=== PATIENT | male | born 1940 | race Caucasian/White ===

== ENCOUNTER → 2019-03-28 | Outpatient (CLI) | payer OTHER ==
[~2019-03-28] MED LIST: ALEVE220 MG PO; LORTAB PO; MULTIVITAMINS PO
== END ==
LOC: SJCVCIMAG 08:27
DX: I65.23 Occlusion and stenosis of bilateral carotid arteries (principal); I25.10 Atherosclerotic heart disease of native coronary artery without angina pectoris; E78.00 Pure hypercholesterolemia, unspecified; I42.9 Cardiomyopathy, unspecified; I12.9 Hypertensive chronic kidney disease with stage 1 through stage 4 chronic kidney disease, or unspecified chronic kidney disease; N18.4 Chronic kidney disease, stage 4 (severe); J44.9 Chronic obstructive pulmonary disease, unspecified; I73.9 Peripheral vascular disease, unspecified; I71.4 Abdominal aortic aneurysm, without rupture; F17.210 Nicotine dependence, cigarettes, uncomplicated; Z72.89 Other problems related to lifestyle

== ENCOUNTER → 2019-11-22 | Outpatient (CLI) | payer OTHER | LOC: SJCVCIMAG 07:33 | PROVIDERS: ATTEND Internal Medicine Cardiovascular Disease | DX: I70.203 Unspecified atherosclerosis of native arteries of extremities, bilateral legs (principal); I49.3 Ventricular premature depolarization; I44.0 Atrioventricular block, first degree; I71.4 Abdominal aortic aneurysm, without rupture; I42.9 Cardiomyopathy, unspecified; I25.10 Atherosclerotic heart disease of native coronary artery without angina pectoris; E78.00 Pure hypercholesterolemia, unspecified; I65.23 Occlusion and stenosis of bilateral carotid arteries; I10 Essential (primary) hypertension; J44.9 Chronic obstructive pulmonary disease, unspecified; F17.210 Nicotine dependence, cigarettes, uncomplicated; Z79.899 Other long term (current) drug therapy ==

== ENCOUNTER → 2020-02-27 | Outpatient (CLI) | payer OTHER | LOC: SJCVCIMAG 12:30 | PROVIDERS: ATTEND Internal Medicine Cardiovascular Disease | DX: I65.23 Occlusion and stenosis of bilateral carotid arteries (principal); I25.10 Atherosclerotic heart disease of native coronary artery without angina pectoris; E78.00 Pure hypercholesterolemia, unspecified; I73.9 Peripheral vascular disease, unspecified; I10 Essential (primary) hypertension; I71.4 Abdominal aortic aneurysm, without rupture; J44.9 Chronic obstructive pulmonary disease, unspecified; F17.210 Nicotine dependence, cigarettes, uncomplicated; Z79.82 Long term (current) use of aspirin; Z79.899 Other long term (current) drug therapy ==

== ENCOUNTER → 2020-03-12 | Outpatient (CLI) | payer OTHER ==
[~2020-03-12] MED LIST changes: +ADULT ASPIRIN R81 MG PO; +BENICAR40 MG PO; +BYSTOLIC 5 MG5 MG PO; +CLOPIDOGREL75 MG PO; +LIPITOR 40 MG T40 M1 PO
== END ==
LOC: LAB 08:16
PROVIDERS: ATTEND Surgery
DX: Z01.812 Encounter for preprocedural laboratory examination (principal); Z20.828 Contact with and (suspected) exposure to other viral communicable diseases

== ENCOUNTER 2020-03-17 06:08 | Day surgery (SDC) | payer OTHER ==
[~2020-03-17] VITALS: Ht 180.3 cm; Wt 60.3 kg
[2020-03-17 06:47] LABS: HEMATOCRIT 35.7 % (42.0-52.0); HEMOGLOBIN 11.6 gm/dL (14.0-18.0)
[2020-03-17 07:00] LABS: CALCIUM 9.2 mg/dL (8.5-10.1); POTASSIUM 4.3 mmol/L (3.5-5.1)
[2020-03-17 07:05] LABS: ALBUMIN 3.8 g/dL (3.4-5.0); TOTAL BILIRUBIN 0.5 mg/dL (0.2-1.0); TOTAL PROTEIN 6.7 g/dL (6.4-8.2)
[2020-03-17 07:32] VITALS: BP 122/62
[2020-03-17] MEDS ORDERED: COLACE100 MG PO (09:42)
[2020-03-17] MEDS ORDERED: MIRALAX119 GM PO (09:42)
[2020-03-17] MEDS ORDERED: NORCO 5-325 TA1 EAC2 PO (09:44)
[2020-03-17 09:56] VITALS: BP 122/62
--- NOTE | 2020-03-19 15:07 | PATH ---
[facility] [address] [place] [address] PATHOLOGY RPT PROCEDURE Name: SONDRA SHEEHAN Lisset Room #: DEP [facility] M.R.#: [id number] Admission: 03/17/20 Date of : 42 Discharge: 03/17/20 Report #: [id number] Path Case #: [id number] Accession Number: [id number] . 01 Material submitted: . hemorrhoids - HEMORROIDS . 01 Clinical history: . HEMORRHOID WITH BLEEDING HEMORRHOIDECTOMY . 02 Diagnosis: Hemorrhoids, hemorrhoidectomy: - Markedly dilated, congested and variceal veins within submucosa, consistent with hemorrhoids. - Overlying squamous epithelium showing reactive atypia along with hyperkeratosis. (IUV:aircraft armorer; 03/19/2020) MBR 03/19/2020 1218 Local . 02 Electronically signed: . Andra Hood MD, Pathologist NPI- [id number] . 01 Gross description: . The specimen is received in formalin, labeled "Sondra Sheehan cory". Received are six segments of epithelial covered tissue ranging in size from 1.0 x 0.5 x 0.3 to 2.5 x 1.3 x 1.2 cm in greatest dimensions. Sectioning reveals pink-chan to moderately vascularized cut surfaces. No distinct nodules or lesions are noted grossly. The specimen is submitted representatively in cassette A1 and A2. (CAA; 03/17/2020) QA/[facility] 03/17/2020 1519 Local . 02 Pathologist provided ICD-10: K64.9 . 02 CPT . 684783 Specimen Comment: A courtesy copy of this report has been sent to [phone] Specimen Comment: Report sent to Performed at: [address] [id number] MD Smith Mclean MD Phone: [phone] Performed at: 02 [facility] [address] [place] [address] PATHOLOGY RPT PROCEDURE Name: SONDRA SHEEHAN Room #: DEP [facility]..#: [id number] Admission: 03/17/20 Date of : 42 Discharge: 03/17/20 Report #: [id number] Path Case #: [id number] [address] [place] [id number] MD Andra Hood MD Phone: [phone]
--- NOTE | 2020-03-29 13:19 | O ---
[facility] [place] [address] OPERATIVE REPORT Name: SONDRA SHEEHAN Room #: DEP [facility].#: [id number] Admission: 03/17/20 Attend Phys: Almas Garcia MD Discharge: 03/17/20 Date of : 42 Report #: [id number] THIS REPORT FOR: cc: Hector Hawk MD, Christopher B. MD Chu, Peter Y. MD ~ DATE OF SERVICE: 03/17/2020 PREOPERATIVE DIAGNOSIS: Grade 4 internal and external hemorrhoid with bleeding. POSTOPERATIVE DIAGNOSIS: Grade 4 internal and external hemorrhoid with bleeding. PROCEDURES PERFORMED: Hemorrhoidectomy x 3 including internal and external component. ANESTHESIA: General, prone position. SURGEON: Almas Garcia MD COMPLICATIONS: None. ESTIMATED BLOOD LOSS: 5 mL. PROCEDURE NOTE: With the patient in the prone position under general anesthesia, the rectal area was prepped and draped in sterile fashion. The buttocks were taped apart. The patient received IV Ancef and also Flagyl. Timeout was performed. A 0.25% Marcaine was used to anesthetize the skin and subcutaneous tissue, perianal block. A total of 20 mL was injected of 0.25% Marcaine with epinephrine. The patient had 3 groups: One is left lateral, right lateral, and right anterior. All these were excised. The redundant skin was excised, and the skin was then freed from underneath sphincter muscle. The internal hemorrhoid was then isolated, divided with a Harmonic scalpel. On the left side, there were a couple of internal hemorrhoids adjacent to it, and these were also removed. The right posterior one is the one that in the evaluation in the office looked like it was the prolapsed and bleeding site. This was removed in the same manner. The skin was excised. The internal hemorrhoid was divided with Harmonic scalpel. Hemostasis was obtained. Right anterior was then performed. There was a small clot on the left side, which I also removed. The hemostasis was obtained. Irrigation was performed. No bleeding identified. The skin externally was closed with 2-0 Vicryl suture in running fashion. Gelfoam with lidocaine jelly and Silvadene was placed into the canal. A [address] [address] OPERATIVE REPORT Name: AGUILASONDRA Lisset Room #: DEP [facility].#: [id number] Admission: 03/17/20 Attend Phys: Almas Garcia MD Discharge: 03/17/20 Date of : 42 Report #: [id number]'s, ABD tape was applied. The patient was taken to recovery room having tolerated the procedure well. <ELECTRONICALLY SIGNED> By: Almas Garcia MD 03/29/20 1319 1151 1211 Almas Garcia MD /nt
== END 2020-03-17 10:25 | disposition home or self-care (01) ==
LOC: OR 06:08 → TBA 06:08 → OR 10:25
PROVIDERS: ATTEND Surgery
DX: K64.3 Fourth degree hemorrhoids (principal); I12.9 Hypertensive chronic kidney disease with stage 1 through stage 4 chronic kidney disease, or unspecified chronic kidney disease; N18.4 Chronic kidney disease, stage 4 (severe); I25.2 Old myocardial infarction; E78.5 Hyperlipidemia, unspecified; J44.9 Chronic obstructive pulmonary disease, unspecified; F17.210 Nicotine dependence, cigarettes, uncomplicated; Z98.890 Other specified postprocedural states; Z79.899 Other long term (current) drug therapy
CPT/HCPCS: 50010; 50101; 50386; 50403; 52190; 56526; 62110; 62900; 70005

== ENCOUNTER 2020-03-23 17:45 | Inpatient (IN) | payer OTHER ==
[~2020-03-23] VITALS: Ht 180.3 cm; Wt 54.4 kg
[~2020-03-23 17:45] MED LIST changes: +COLACE100 MG PO; +MIRALAX119 GM PO; +NORCO 5-325 TA1 EAC2 PO
[2020-03-23 17:46] VITALS: BP 121/58
[2020-03-23 18:20] LABS: ABSOLUTE NEUTROPHILS 10.4 thou/uL (1.4-8.2); BASOPHILS 0.4 % (0.0-2.0); EOSINOPHILS 0.2 % (0.0-3.0); HEMATOCRIT 31.4 % (42.0-52.0); HEMOGLOBIN 10.2 gm/dL (14.0-18.0); LYMPHOCYTES 11.8 % (24.0-44.0); MCH 29.2 pg (26.0-34.0); MCHC 32.3 g/dL (28.0-37.0); MCV 90.3 fL (80.0-100.0); MONOCYTES 4.9 % (1.0-8.0); PLATELET COUNT 247 thou/uL (150-400); POLYS 82.7 % (36.0-66.0); RBC 3.48 mil/uL (4.50-6.00); RDW 14.8 % (10.5-14.5); WBC 12.6 thou/uL (4.0-11.0)
[2020-03-23 18:22] LABS: ANION GAP 16 mmol/L (7-16); BUN 59 mg/dL (7-18); CALCIUM 9.2 mg/dL (8.5-10.1); CHLORIDE 108 mmol/L (98-107); CO2 18 mmol/L (21-32); CREATININE 4.1 mg/dL (0.7-1.3); GLUCOSE 187 mg/dL (74-106); POTASSIUM 4.8 mmol/L (3.5-5.1); SODIUM 142 mmol/L (136-145)
[2020-03-23] MEDS ORDERED: PLAVIX 75 MG TA75 MG PO (18:27)
[2020-03-23 18:31] LABS: INR 1.2; PROTIME 11.9 Seconds (9.3-11.4); TROPONIN-I <0.06 ng/mL (<0.06)
[2020-03-23 20:34] VITALS: BP 121/44
--- NOTE | 2020-03-23 20:37 | NUR ---
Called CCU but nobody answer phone
[2020-03-23 20:44] VITALS: BP 137/50
[2020-03-23 21:19] VITALS: BP 151/71
[2020-03-24 00:24] VITALS: BP 136/71
[2020-03-24 04:23] LABS: CALCIUM 8.7 mg/dL (8.5-10.1); CREATININE 4.1 mg/dL (0.7-1.3); POTASSIUM 4.4 mmol/L (3.5-5.1)
[2020-03-24 04:42] LABS: HEMATOCRIT 27.1 % (42.0-52.0); HEMOGLOBIN 9.1 gm/dL (14.0-18.0); MCH 29.5 pg (26.0-34.0); MCHC 33.4 g/dL (28.0-37.0); MCV 88.4 fL (80.0-100.0); RBC 3.07 mil/uL (4.50-6.00); RDW 14.9 % (10.5-14.5); WBC 10.4 thou/uL (4.0-11.0)
[2020-03-24 04:45] VITALS: BP 136/80
--- NOTE | 2020-03-24 07:19 | EKG ---
[address] [place] [address] ELECTROCARDIOGRAM REPORT Name: SONDRA SHEEHAN Room #: 219-P ADM IN M.R.#: [id number] Admission: 03/23/20 Attend Phys: Carmela Ureña MD Discharge: Date of : 42 Report #: [id number] [facility] ED Test Date: 2020-03-23 Test Time: 17:59:58 Pat Name: SONDRA SHEEHAN Department: Room: 219 Gender: M Telecom Manager: JAMES : 1940 Requested By: Lorrie Gu Order Number: [id number] MD: Nathanael Calles Measurements Intervals [place] Rate: 61 P: 63 LA: 180 QRS: 27 QRSD: 127 T: -44 QT: 490 QTc: 494 Interpretive Statements Sinus rhythm Nonspecific ST segment abnormality Prolonged QT interval No previous ECG available for comparison Electronically Signed On 03-24-2020 7:19:19 SECURITY INFRASTRUCTURE ENGINEER by Nathanael Calles [email or web address] <ELECTRONICALLY SIGNED> By: Nathanael Calles MD, LOCATED WITHIN [facility] 03/24/20 0719 1759 1759 Nathanael Calles MD, FACC /EPI
--- NOTE | 2020-03-24 07:39 | NUR ---
PATIENTS CARES WERE ASSUMED AFTER A TRANSFER FROM ER. PATIENT WAS ASSESSED AND MEDS WERE PASSED. PATIENT IS TO GO TO SURGERY AT APPROX 0900. DR. WEI WAS CALLED TO DO AN H/H AT 0600 DR. WEI SAID NO WAIT UNTIL 10. PATIENT ONLY C/O NO FOOD OR WATER WILL CONTINUE TO MONITOR.
[2020-03-24 08:00] VITALS: BP 116/70
[2020-03-24 10:37] LABS: HEMATOCRIT 26.6 % (42.0-52.0); HEMOGLOBIN 8.7 gm/dL (14.0-18.0)
[2020-03-24 12:11] VITALS: BP 144/65
[2020-03-24 16:00] VITALS: BP 136/52
--- NOTE | 2020-03-24 18:17 | NUR ---
PT CARE ASSUMED AT 0700. A&Ox4. NSR ON THE MONITOR. PT TO HAVE SITZBATH THREE TIMES A DAY. ON RENAL DIET. POSSIBLE DISCHARGE TOMORROW. IV PATENT WITH NO REDNESS OR EDEMA, FLUIDS INFUSING. UP TO THE BATHROOM. VITALS STABLE. CALL LIGHT IN REACH. WILL CONTINUE TO MONITOR.
[2020-03-24 19:40] VITALS: BP 146/48
[2020-03-25 04:38] VITALS: BP 139/54
[2020-03-25 06:22] LABS: HEMATOCRIT 25.9 % (42.0-52.0); HEMOGLOBIN 8.4 gm/dL (14.0-18.0); MCH 29.2 pg (26.0-34.0); MCHC 32.4 g/dL (28.0-37.0); MCV 89.9 fL (80.0-100.0); RBC 2.88 mil/uL (4.50-6.00); RDW 15.3 % (10.5-14.5)
[2020-03-25 06:26] LABS: CALCIUM 8.4 mg/dL (8.5-10.1); CREATININE 3.8 mg/dL (0.7-1.3); POTASSIUM 3.7 mmol/L (3.5-5.1)
--- NOTE | 2020-03-25 06:28 | NUR ---
PATIENTS CARES WERE ASSUMED AT SHIFT CHANGE. PATIENT WAS ASSESSED AND MEDS WERE PASSED. REQUEST FOR A SITZ BATH TO BE BROUGHT FROM [facility]ENTER[facility] [employer] WAS GIVEN TO HOUSE SUPERVISER YESTERDAY AND IT WAS NOT DELIVERED. WARM WASH CLOTHS WERE PLACED. HOURLY ROUNDS WERE DONE. THE BED IS IN A LOW AND LOCKED POSITION
[2020-03-25 06:58] VITALS: BP 118/73
[2020-03-25 07:55] VITALS: BP 118/73
[2020-03-25] MEDS ORDERED: PROTONIX40 M2 PO (13:04)
[2020-03-25 13:06] VITALS: BP 118/73
--- NOTE | 2020-03-25 13:06 | NUR ---
Met with patient reports he resides at home alone. He uses no DME and no hx of rehab. Patient reports he cont to drive. He reports he is independent with adls. He reports no needs at dc. Denies need for home health RN.
--- NOTE | 2020-03-25 16:35 | NUR ---
PT CARE ASSUMED AT 0700. ASSESSMENTS CHARTED. MEDICATIONS CHARTED. RAC IV. LAC IV. SINUS RHYTHM. PT HAS HAD HEMORRHOID SURGERY. PT DISCHARGED TO HOME. DISCHARGE PAPERWORK SIGNED. TELEMETRY D/C'D. IV D/C'D.
== END 2020-03-25 13:56 | disposition home or self-care (01) | DRG 377 ==
LOC: ER 17:45 → EROBS 19:29 → 2N 19:29
PROVIDERS: Emergency Medicine; Nurse Practitioner Family; Surgery; ADMIT Internal Medicine; ATTEND Internal Medicine
DX: K92.1 Melena (principal); N17.0 Acute kidney failure with tubular necrosis; R65.11 Systemic inflammatory response syndrome (SIRS) of non-infectious origin with acute organ dysfunction; N17.9 Acute kidney failure, unspecified; N18.4 Chronic kidney disease, stage 4 (severe); I73.9 Peripheral vascular disease, unspecified; E78.5 Hyperlipidemia, unspecified; I12.9 Hypertensive chronic kidney disease with stage 1 through stage 4 chronic kidney disease, or unspecified chronic kidney disease; D64.9 Anemia, unspecified; E86.0 Dehydration; F17.210 Nicotine dependence, cigarettes, uncomplicated; J44.9 Chronic obstructive pulmonary disease, unspecified; R53.81 Other malaise; I25.10 Atherosclerotic heart disease of native coronary artery without angina pectoris; K59.00 Constipation, unspecified; Z95.828 Presence of other vascular implants and grafts; Z79.899 Other long term (current) drug therapy; I25.2 Old myocardial infarction; Z95.5 Presence of coronary angioplasty implant and graft
CPT/HCPCS: 10081

== ENCOUNTER 2020-03-26 01:55 | Emergency (ER) | payer OTHER ==
[~2020-03-26] VITALS: Ht 180.3 cm; Wt 54.4 kg
[~2020-03-26 01:55] MED LIST changes: +PLAVIX 75 MG TA75 MG PO; +PROTONIX40 M2 PO
[2020-03-26 03:58] LABS: ABSOLUTE NEUTROPHILS 7.5 thou/uL (1.4-8.2); BASOPHILS 0.5 % (0.0-2.0); EOSINOPHILS 1.1 % (0.0-3.0); HEMATOCRIT 23.7 % (42.0-52.0); HEMOGLOBIN 7.8 gm/dL (14.0-18.0); LYMPHOCYTES 16.1 % (24.0-44.0); MCH 29.6 pg (26.0-34.0); MCV 89.7 fL (80.0-100.0); PLATELET COUNT 185 thou/uL (150-400); POLYS 76.3 % (36.0-66.0); RBC 2.64 mil/uL (4.50-6.00); RDW 14.9 % (10.5-14.5); WBC 9.9 thou/uL (4.0-11.0)
[2020-03-26 04:03] LABS: CALCIUM 8.6 mg/dL (8.5-10.1); CREATININE 3.4 mg/dL (0.7-1.3); POTASSIUM 4.2 mmol/L (3.5-5.1)
[2020-03-26 04:39] LABS: APTT 27.2 Seconds (24.5-32.8); INR 1.1; PROTIME 11.4 Seconds (9.3-11.4)
[2020-03-26 05:29] VITALS: BP 149/93
== END 2020-03-26 05:29 | disposition home or self-care (01) ==
LOC: ER 01:55
PROVIDERS: Emergency Medicine
DX: K62.5 Hemorrhage of anus and rectum (principal); D64.9 Anemia, unspecified; R10.30 Lower abdominal pain, unspecified; K64.4 Residual hemorrhoidal skin tags; I25.2 Old myocardial infarction; I73.9 Peripheral vascular disease, unspecified; J44.9 Chronic obstructive pulmonary disease, unspecified; E78.5 Hyperlipidemia, unspecified; I12.9 Hypertensive chronic kidney disease with stage 1 through stage 4 chronic kidney disease, or unspecified chronic kidney disease; N18.4 Chronic kidney disease, stage 4 (severe); Z79.899 Other long term (current) drug therapy; Z98.890 Other specified postprocedural states

== ENCOUNTER → 2020-06-18 | Outpatient (CLI) | payer OTHER | LOC: SJCVCIMAG 06-11 08:10 | PROVIDERS: ATTEND Internal Medicine Cardiovascular Disease | DX: R94.31 Abnormal electrocardiogram [ECG] [EKG] (principal); I25.10 Atherosclerotic heart disease of native coronary artery without angina pectoris; I10 Essential (primary) hypertension; I77.9 Disorder of arteries and arterioles, unspecified; I73.9 Peripheral vascular disease, unspecified; I42.9 Cardiomyopathy, unspecified; I71.4 Abdominal aortic aneurysm, without rupture; E78.00 Pure hypercholesterolemia, unspecified; F17.210 Nicotine dependence, cigarettes, uncomplicated; Z72.89 Other problems related to lifestyle; Z79.82 Long term (current) use of aspirin; Z79.899 Other long term (current) drug therapy ==

== ENCOUNTER → 2021-01-07 | Outpatient (CLI) | payer OTHER | LOC: SJCVCIMAG 09:40 | PROVIDERS: ATTEND Internal Medicine Cardiovascular Disease | DX: R94.31 Abnormal electrocardiogram [ECG] [EKG] (principal); I49.1 Atrial premature depolarization; I65.23 Occlusion and stenosis of bilateral carotid arteries; I70.203 Unspecified atherosclerosis of native arteries of extremities, bilateral legs; I25.10 Atherosclerotic heart disease of native coronary artery without angina pectoris; I10 Essential (primary) hypertension; I77.9 Disorder of arteries and arterioles, unspecified; I71.4 Abdominal aortic aneurysm, without rupture; I42.9 Cardiomyopathy, unspecified; E78.00 Pure hypercholesterolemia, unspecified; J44.9 Chronic obstructive pulmonary disease, unspecified; F17.210 Nicotine dependence, cigarettes, uncomplicated; Z72.89 Other problems related to lifestyle; Z79.82 Long term (current) use of aspirin; Z79.899 Other long term (current) drug therapy ==

== ENCOUNTER → 2021-05-06 | Outpatient (CLI) | payer OTHER | LOC: SJCVC 09:32 | PROVIDERS: ATTEND Internal Medicine Cardiovascular Disease | DX: R94.31 Abnormal electrocardiogram [ECG] [EKG] (principal); I24.9 Acute ischemic heart disease, unspecified; R07.9 Chest pain, unspecified; I25.118 Atherosclerotic heart disease of native coronary artery with other forms of angina pectoris; I73.9 Peripheral vascular disease, unspecified; I71.4 Abdominal aortic aneurysm, without rupture; I77.9 Disorder of arteries and arterioles, unspecified; I10 Essential (primary) hypertension; E78.00 Pure hypercholesterolemia, unspecified; J44.9 Chronic obstructive pulmonary disease, unspecified; F17.210 Nicotine dependence, cigarettes, uncomplicated; Z72.89 Other problems related to lifestyle; Z79.82 Long term (current) use of aspirin; Z79.899 Other long term (current) drug therapy ==

== ENCOUNTER → 2021-05-11 | Outpatient (CLI) | payer OTHER ==
[~2021-05-11] VITALS: Ht 180.3 cm; Wt 63.5 kg
[~2021-05-11] MED LIST changes: +ASA81BEC PO
[2021-05-11 08:16] VITALS: BP 130/65
[2021-05-11 08:22] LABS: HEMATOCRIT 33.8 % (42.0-52.0); HEMOGLOBIN 11.5 gm/dL (14.0-18.0); MCH 29.4 pg (26.0-34.0); MCV 86.6 fL (80.0-100.0); RBC 3.9 mil/uL (4.50-6.00); RDW 14.8 % (10.5-14.5)
[2021-05-11 08:38] LABS: CALCIUM 8.9 mg/dL (8.5-10.1); CREATININE 3.1 mg/dL (0.7-1.3); POTASSIUM 3.9 mmol/L (3.5-5.1)
--- NOTE | 2021-05-11 11:39 | EKG ---
[place] [address] [facility] [place] [address] ELECTROCARDIOGRAM REPORT Name: SONDRA SHEEHAN Room #: [facility]#: [id number] Admission: 05/11/21 Attend Phys: Renny Coles MD, Discharge: Date of : 42 Report #: [id number] [facility] Test Date: 2021-05-11 Test Time: 08:00:08 Pat Name: SONDRA SHEEHAN Department: Room: Gender: M Field Representatives Director: [facility] : 1940 Requested By: Renny Coles Order Number: [id number] MD: Mohit Zapata Measurements Intervals [place] Rate: 73 P: 60 RI: 192 QRS: 48 QRSD: 125 T: 229 QT: 442 QTc: 488 Interpretive Statements Sinus rhythm Probable left atrial enlargement Left bundle branch block Compared to ECG 03/23/2020 17:59:58 Left bundle-branch block now present ST (T wave) deviation no longer present Prolonged QT interval no longer present Electronically Signed On 05-11-2021 11:39:27 SUB PLANT MANAGER by Mohit Zapata [email or web address] <ELECTRONICALLY SIGNED> By: Mohit Zapata MD, [facility] 05/11/21 1139 08 0800 Mohit Zapata MD, [facility] /EPI
--- NOTE | 2021-05-12 17:18 | CATHLAB ---
[facility] [place] [address] INVASIVE PROCEDURE REPORT Name: SONDRA SHEEHAN Room #: REG JOSTIN Rivera.#: [id number] Admission: 05/11/21 Attend Phys: Renny Coles MD, Discharge: Date of : 42 Report #: [id number] THIS REPORT FOR: cc: Hector Hawk MD, Christopher B. MD Mancuso, Gerald M. MD [facility] ~ APPROVED REPORT Study performed: 05/11/2021 08:47:57 Patient Details Patient Status: Out-Patient Room #: The patient is a 80 year-old male Event Personnel Renny Coles Sap Basis Consultant, Manoj Chavarria RN RN, Sondra Jaffe Paschal, Ja'net RTR Monitor Procedures Performed Art Access - R femoral artery* Left Heart Cath w/or w/o Coronaries [id number] [facility] Renal Bilateral Peripheral Angiography 8101846 CVRENALBIL Hemostasis w/ Mynx 58754 Initial Mod Sed Same Phys/QHP Gr5y 238259 Indication Chest pain Procedure Narrative The patient was brought electively to the Cardiac Catheterization Laboratory and was prepped and draped in a sterile manner. The Right Groin^ was infiltrated with 1% Lidocaine subcutaneous anesthesia. A PINNACLE 6FR Sheath #[id number] sheath was inserted into the RFA^. Coronary angiography was performed using coronary diagnostic catheters. The right coronary system was accessed and visualized with a JR4 catheter. The left coronary system was accessed and visualized with a JL4 catheter. The left ventricle was accessed and visualized with a PIGTAIL catheter. Left ventricular/Aortic Valve gradient assessed via catheter pullback. Left ventriculogram was performed in 30 degree projection. Closure device was deployed with a Fr MYNXGRIP 6/7F #[id number]. The patient tolerated the procedure well and there were no complications associated with the procedure. There was no hematoma. Intraoperative Conscious Sedation [facility] [address] [place] [address] INVASIVE PROCEDURE REPORT Name: SONDRA SHEEHAN Room #: REG [facility]#: [id number] Admission: 05/11/21 Attend Phys: Renny Coles, Discharge: Date of : 42 Report #: [id number] Sedation start time: 9:31 Case end Time: 9:59 Fentanyl 50 mcg Versed 0.5 mg Fluoro Time: 1.70 minutes Dose: DAP 1720.80 cGycm2 248 mGy Contrast Type and Amount: Visipaque 35 ml Hemodynamics The aortic pressure is 176/83 mmHg with a mean of 116 mmHg. The left ventricular pressure is 171/6 mmHg with a mean of mmHg. The left ventricular end diastolic pressure is 18 mmHg. Pullback from the left ventricle to the aorta revealed no gradient across the aortic valve. Conclusion #1 No LV gram performed hemodynamics obtained due to renal insufficiency. See echo report. #2 left main mildly calcified widely patent distal tapered narrowing 40 to 50% giving rise to LAD and circumflex. #3 significant proximal calcification. Multiple areas of eccentric lesions of 60 to 70% although not flow-limiting. Filling a moderate disease distal vessel which extends to the apex. Appears to be collaterally filling an occluded right coronary PDA segment. That is via septal perforators #4 circumflex OM is a eccentric ostial lesion of 60% calcified relatively small distribution circumflex OM nondominant. 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 It is filled via collateral filling from the left system the PDA LISA briskly. Recommendations and plan: We will continue aggressive risk factor modification. Do not recommend intervention at this time due to no definite high-grade disease except the occluded RCA. Extensive calcification also would be challenging for percutaneous intervention but probably not indicated at this time close follow-up will be arranged. <ELECTRONICALLY SIGNED> By: Renny Coles MD, [facility] 05/12/211716 16 16 Renny Coles MD, FACC /INF
== END | disposition home or self-care (01) ==
LOC: CATH 07:19
PROVIDERS: ATTEND Internal Medicine Cardiovascular Disease
DX: R07.9 Chest pain, unspecified (principal); I25.10 Atherosclerotic heart disease of native coronary artery without angina pectoris; I12.9 Hypertensive chronic kidney disease with stage 1 through stage 4 chronic kidney disease, or unspecified chronic kidney disease; N18.4 Chronic kidney disease, stage 4 (severe); J44.9 Chronic obstructive pulmonary disease, unspecified; E78.5 Hyperlipidemia, unspecified; I25.2 Old myocardial infarction; I73.9 Peripheral vascular disease, unspecified; Z98.890 Other specified postprocedural states; Z79.899 Other long term (current) drug therapy; Z90.49 Acquired absence of other specified parts of digestive tract; Z87.891 Personal history of nicotine dependence; Z79.82 Long term (current) use of aspirin